=== PATIENT | female | born 2000 | race Two or more races ===

== ENCOUNTER 2024-08-30 20:14 | Emergency (ER) | payer OTHER ==
[~2024-08-30] VITALS: Ht 152.4 cm; Wt 89.8 kg
[2024-08-30 20:26] VITALS: BP 116/60; O2SAT 97
[2024-08-30] MEDS ORDERED: LEVOTHYROXINE25 MCG (20:27)
[2024-08-30] MEDS ORDERED: ONDANSETRON HCL 2 MG/ML VIAL IV ONE (20:45)
[2024-08-30 21:14] LABS: HEMATOCRIT 38.7 % (36.0-45.00); HEMOGLOBIN 13.1 g/dL (12.0-15.00); MEAN CORPUSCULAR HEMOGLOBIN 28.2 pg (27.00-32.0); PLATELET COUNT 295 K/uL (150-450); RED BLOOD COUNT 4.66 M/uL (4.00-6.00); RED CELL DISTRIBUTION WIDTH 13.1 % (11.5-14.5)
[2024-08-30 21:46] LABS: ALBUMIN 3.7 gm/dL (3.4-5.0); BILIRUBIN TOTAL 0.4 mg/dL (0.3-1.2); CREATININE SERUM 0.74 mg/dL (0.55-1.02); GFR 97.25; GLOBULINA 4.3 G/DL (2.4-3.5); POTASSIUM 4.26 mEq/L (3.5-5.1)
== END 2024-08-30 22:19 | disposition home or self-care (01) ==
LOC: ER 20:14
PROVIDERS: General Practice
DX: R42 Dizziness and giddiness (principal)